=== PATIENT | female | born 1985 | race Caucasian/White ===

== ENCOUNTER 2019-02-18 12:06 | Observation (INO) | payer OTHER ==
[~2019-02-18] VITALS: Ht 172.7 cm; Wt 118.6 kg
[2019-02-18 13:33] VITALS: BP 107/59
[2019-02-18 15:38] LABS: MICROSCOPIC INDICATED
[2019-02-18] MEDS ORDERED: ACETAMINOPHEN 325 MG TABLET ONE (16:34)
[2019-02-18] MEDS ORDERED: ACETAMINOPHEN 325 MG TABLET PO PRN (17:00)
== END 2019-02-18 18:20 | disposition home or self-care (01) ==
LOC: LDOP 12:06 → LDIP 17:38
PROVIDERS: ADMIT Obstetrics & Gynecology; ATTEND Obstetrics & Gynecology
DX: O9A.213 Injury, poisoning and certain other consequences of external causes complicating pregnancy, third trimester (principal); S00.81XA Abrasion of other part of head, initial encounter; O36.5930 Maternal care for other known or suspected poor fetal growth, third trimester, not applicable or unspecified; O09.523 Supervision of elderly multigravida, third trimester; O26.893 Other specified pregnancy related conditions, third trimester; Z67.90 Unspecified blood type, Rh positive; Z3A.29 29 weeks gestation of pregnancy; W01.0XXA Fall on same level from slipping, tripping and stumbling without subsequent striking against object, initial encounter; Y93.9 Activity, unspecified; Y92.89 Other specified places as the place of occurrence of the external cause
CPT/HCPCS: 36415; 76805; 81001; 85460; G0378; 59025; 99201; G0463

== ENCOUNTER 2019-04-24 14:01 | Outpatient (CLI) | payer OTHER ==
[~2019-04-24] VITALS: Ht 172.7 cm; Wt 121.4 kg
[2019-04-24 14:31] VITALS: BP 120/69
== END 2019-04-24 16:50 | disposition home or self-care (01) ==
LOC: LDOP 14:01
PROVIDERS: ATTEND Obstetrics & Gynecology
DX: O36.8130 Decreased fetal movements, third trimester, not applicable or unspecified (principal); O09.93 Supervision of high risk pregnancy, unspecified, third trimester; Z3A.38 38 weeks gestation of pregnancy
CPT/HCPCS: 59025; 76819; 99211; G0463

== ENCOUNTER 2019-12-05 01:22 | Emergency (ER) | payer OTHER ==
[~2019-12-05] VITALS: Ht 172.7 cm; Wt 111.8 kg
[~2019-12-05 01:22] MED LIST: DOCU-131 PO; IBUP-1223 PO; OXYC-302 PO
--- NOTE | 2019-12-05 01:39 | NUR ---
C/O LEFT SIDE FLANK PAIN, PLACED ON VITALS SIGNS MONITORS. SAFETY PRECAUTIONS IN PLACE.
[2019-12-05] MEDS ORDERED: ONDANSETRON 2MG/ML, 2ML ONE (01:59)
[2019-12-05] MEDS ORDERED: ONDANSETRON 2MG/ML, 2ML IVPush ONE (02:00)
[2019-12-05] MEDS ORDERED: MORPHINE SULFATE 4 MG/ML, 1ML ONE ×2 (02:00→02:09)
[2019-12-05] MEDS: MORPHINE SULFATE 4 MG/ML, 1ML IVPush PRN ×2 (02:07→02:18)
--- NOTE | 2019-12-05 02:21 | NUR ---
Pt to ultrasound.
[2019-12-05 02:24] LABS: BASOPHILS # (AUTO) 0.03 x10^3/uL (0-0.1); BASOPHILS % (AUTO) 0 % (0-1); EOSINOPHILS # (AUTO) 0.25 x10^3/uL (0-0.4); EOSINOPHILS % (AUTO) 4 % (1-7); LYMPHOCYTES # (AUTO) 2.27 x10^3/uL (1-3.4); LYMPHOCYTES % (AUTO) 34 % (22-44); MD NO; MEAN CORPUSCULAR HEMOGLOBIN 29.3 pg (27.0-34.8); MEAN CORPUSCULAR VOLUME 88.7 fL (80-100); MEAN PLATELET VOLUME 7.5 fL (7.4-10.4); MONOCYTES # (AUTO) 0.67 x10^3/uL (0.2-0.8); MONOCYTES % (AUTO) 10 % (2-9); NEUTROPHILS # (AUTO) 3.57 x10^3/uL (1.8-6.8); NEUTROPHILS % (AUTO) 53 % (42-75); PLATELET COUNT 337 x10^3/uL (130-400); RED BLOOD COUNT 4.78 x10^6/uL (3.82-5.3); RED CELL DISTRIBUTION WIDTH 12.9 % (9.6-15.2)
[2019-12-05 02:27] LABS: ALBUMIN 3.5 g/dL (3.4-5.0); ANION GAP 7 mmol/L (5-15); CALCIUM 8.7 mg/dL (8.5-10.1); CHLORIDE 110 mmol/L (98-107); CREATININE 1.01 mg/dL (0.55-1.02)
--- NOTE | 2019-12-05 02:45 | NUR ---
Pt reports pain has subsided after second dose of morphine, placed on 2L NC for O2 sat 84% RA, now 95% on 2L. VSS.
[2019-12-05 02:46] LABS: MICROSCOPIC INDICATED
--- NOTE | 2019-12-05 02:54 | NUR ---
Pt reports left flank pain is back and worse describes the pain as sharp 10/10. Will update ERP.
[2019-12-05 02:57] LABS: CULTURE INDICATED? YES
[2019-12-05] MEDS ORDERED: KETOROLAC 30 MG/1 ML ONE (02:57)
[2019-12-05] MEDS ORDERED: KETOROLAC 30 MG/1 ML IVPush ONE (03:00)
--- NOTE | 2019-12-05 03:28 | NUR ---
Pt resting on gurney with eyes closed, no acute distress noted, respirations even and unlabored.
[2019-12-05 03:42] VITALS: BP 113/65
== END 2019-12-05 04:18 | disposition home or self-care (01) ==
LOC: ED 03:04
DX: N20.2 Calculus of kidney with calculus of ureter (principal)
CPT/HCPCS: 36415; 76770; 80048; 81001; 82040; 85025; 87086; 96374; 96375; 99284; J1885; J2270; J2405

== ENCOUNTER 2019-12-13 11:58 | Emergency (ER) | payer OTHER ==
[~2019-12-13] VITALS: Ht 172.7 cm; Wt 117.0 kg
[2019-12-13] MEDS ORDERED: HYDR-3240 PO (12:40)
[2019-12-13] MEDS ORDERED: SODIUM CHLORIDE FLUSH 10ML SYR IVF ONE (13:30)
[2019-12-13] MEDS ORDERED: HYDROmorphone 2 MG/ML, 1ML IVPush PRN (13:30)
[2019-12-13] MEDS ORDERED: ONDANSETRON 2MG/ML, 2ML IVPush ONE (13:30)
[2019-12-13 13:34] LABS: BASOPHILS # (AUTO) 0.06 x10^3/uL (0-0.1); BASOPHILS % (AUTO) 1 % (0-1); EOSINOPHILS # (AUTO) 0.24 x10^3/uL (0-0.4); EOSINOPHILS % (AUTO) 3 % (1-7); LYMPHOCYTES # (AUTO) 1.77 x10^3/uL (1-3.4); LYMPHOCYTES % (AUTO) 20 % (22-44); MD NO; MEAN CORPUSCULAR HEMOGLOBIN 29.5 pg (27.0-34.8); MEAN CORPUSCULAR HGB CONC 33.3 g/dL (32.4-35.8); MEAN CORPUSCULAR VOLUME 88.5 fL (80-100); MEAN PLATELET VOLUME 7.4 fL (7.4-10.4); MONOCYTES # (AUTO) 0.93 x10^3/uL (0.2-0.8); MONOCYTES % (AUTO) 10 % (2-9); NEUTROPHILS # (AUTO) 5.96 x10^3/uL (1.8-6.8); NEUTROPHILS % (AUTO) 67 % (42-75); PLATELET COUNT 335 x10^3/uL (130-400); RED BLOOD COUNT 4.76 x10^6/uL (3.82-5.3); RED CELL DISTRIBUTION WIDTH 13.3 % (9.6-15.2)
[2019-12-13 13:46] LABS: CHLORIDE 112 mmol/L (98-107)
[2019-12-13 13:47] LABS: ALBUMIN 3.5 g/dL (3.4-5.0); ANION GAP 8 mmol/L (5-15); CALCIUM 8.4 mg/dL (8.5-10.1)
[2019-12-13] MEDS ORDERED: HYDROmorphone 1 MG/ML, 1ML INJ ONE (14:31)
[2019-12-13] MEDS ORDERED: ONDANSETRON 2MG/ML, 2ML ONE (14:31)
--- NOTE | 2019-12-13 14:32 | NUR ---
BREAK RN: PT TO CT.
--- NOTE | 2019-12-13 14:35 | NUR ---
BREAK RN: URINE COLLECTED AND SENT TO LAB.
[2019-12-13 15:02] LABS: MICROSCOPIC INDICATED
--- NOTE | 2019-12-13 15:07 | NUR ---
BREAK RN: PT REPORTS RELIEF OF PAIN AFTER MEDS. ALL TESTS RESULTED. PT IS UP FOR RECHECK AT THIS TIME.
[2019-12-13 15:11] LABS: CULTURE INDICATED? NO
[2019-12-13 16:19] VITALS: BP 99/57
== END 2019-12-13 16:22 | disposition home or self-care (01) ==
LOC: ED 12:18
DX: N13.2 Hydronephrosis with renal and ureteral calculous obstruction (principal)
CPT/HCPCS: 36415; 74176; 80048; 81001; 82040; 84703; 85025; 96374; 96375; 99284; J1170; J2405